=== PATIENT | male | born 1960 | race Asian ===

== ENCOUNTER 2020-07-07 11:20 | Emergency (ER) | payer OTHER ==
[2020-07-07 11:26] VITALS: TEMP 97.7; BMI 31.1
[2020-07-07] MEDS ORDERED: ASPIRIN 81 MG CHEWABLE TABLETS PO ONE (11:33)
[2020-07-07] MEDS ORDERED: ASPIRIN 81 MG CHEWABLE TABLETS ONE (11:35)
[2020-07-07] MEDS ORDERED: HEPARIN NA (PORCINE) 5,000 UNITS/ML 1ML VIAL IVPUSH PRN (11:48)
[2020-07-07] MEDS ORDERED: ATORVASTATIN CA 80 MG TABLET (FP) PO ONE (11:52)
[2020-07-07] MEDS ORDERED: TICAGRELOR 90 MG TABLET PO ONE (11:52)
[2020-07-07] MEDS ORDERED: HEPARIN NA (PORCINE) 5,000 UNITS/ML 1ML VIAL ONE (11:52)
[2020-07-07] MEDS ORDERED: TICAGRELOR 90 MG TABLET PO SCH (12:00)
[2020-07-07] MEDS ORDERED: ATORVASTATIN CA 80 MG TABLET (FP) ONE (12:05)
[2020-07-07 12:18] VITALS: BP 100/55
[2020-07-07 12:20] LABS: BASO % 1.1 % (0-2.0); HEMOGLOBIN 16.1 GM/dL (11.7-16.9); LYMPH % 30.8 % (8-40); MCH 32.7 pg (25.7-33.7); MEAN CELL VOLUME 93.5 fl (80-96); MONO % 4.8 % (3.8-10.2); NEUT % 61.3 % (42.8-82.8); PLATELET COUNT 222 K/MM3 (134-434); RBC 4.91 M/mm3 (4.00-5.60); RDW 12.7 % (11.9-15.9)
[2020-07-07 12:31] LABS: INR 0.94 (0.83-1.09); PROTHROMBIN TIME (PATIENT) 11.4 SEC (9.7-13.0)
[2020-07-07 12:39] LABS: CHLORIDE 108 mmol/L (98-107); SODIUM 142 mmol/L (136-145)
[2020-07-07 12:41] LABS: ALBUMIN 4.2 g/dl (3.4-5.0); CALCIUM 9.1 mg/dL (8.5-10.1)
[2020-07-07 12:42] LABS: ANION GAP 9 MMOL/L (8-16); BLOOD UREA NITROGEN 15.8 mg/dL (7-18); CO2 25 mmol/L (21-32); GLUCOSE,RANDOM 165 mg/dL (74-106); MAGNESIUM 2.6 mg/dL (1.8-2.4)
[2020-07-07 12:45] LABS: SGOT/AST 21 U/L (15-37); SGPT/ALT 36 U/L (13-61)
[2020-07-07 12:46] LABS: BILIRUBIN,TOTAL 0.6 mg/dL (0.2-1)
[2020-07-07 12:48] LABS: ALK PHOS 76 U/L (45-117)
[2020-07-07 13:08] VITALS: PULSE 89
== END 2020-07-07 12:12 | disposition short-term general hospital (02) ==
LOC: JER 11:20
PROC: 3E033GC Introduction of Other Therapeutic Substance into Peripheral Vein, Percutaneous Approach (ICD-10-PCS; principal; 2020-07-07)
DX: I21.29 ST elevation (STEMI) myocardial infarction involving other sites (principal)
CPT/HCPCS: 36415; 80053; 82550; 83735; 84484; 85025; 85610; 93005; 93010; 99291; C9803; J1644; U0003; U0005